=== PATIENT | male | born 1980 | race Caucasian/White ===

== ENCOUNTER 2021-10-12 16:55 | Inpatient (IN) | payer OTHER, SELFPAY ==
[2021-10-12 17:07] VITALS: BP 114/66; PULSE 80; RESP 16; TEMP 36.6; O2SAT 98; BMI 28.7
--- NOTE | 2021-10-12 17:17 | PCM.HP.STD ---
HPI - General General Date of Admission: 10/12/21 HPI Narrative LILLI CUNNINGHAM, is a 41 YO M who presents present to the acute inpt rehab unit at [facility] on 10/12/21 for physical debility due to a 15 foot fall from a roof. He sustained Multiple traumatic injuries including multiple rib fractures and a inferior pubic ramus fracture. He is having recurring visions and reliving the fall every time he closes his eyes. He was seen by the psychologist at the previous hospital. He reported that he has been having a depressed mood and anxiety that predated the fall. He is worried about his landlord's threat to evict him and his family. For the past 2 months he has not been sleeping well and he is also experiencing decreased appetite, impaired concentration and low energy. He has had passive suicidal ideation in the past month but, he has no plans, no intent and no active suicidal ideation. He has no hx of prior suicide attempts. He has been to counselling in the past after facing legal troubles but, he did not think it helped. He has never been on any psych meds or been admitted to a psych hospital. He is a cigarette smoker and he uses marijuana occasionally. He has been sober for 8 years. [facility] Medical History (Updated 10/15/21 @ 09:[address] Iqra Calvin DO) Asthma Left rotator cuff tear arthropathy Home Medications enoxaparin [Lovenox] 30 mg SUBCUT Q12H 10/12/21 [History Last Taken Unknown] gabapentin 200 mg PO TID 10/12/21 [History Last Taken Unknown] methocarbamol 1,500 mg PO TID 10/12/21 [History Last Taken Unknown] oxycodone 5 mg PO Q4H PRN 10/12/21 [History Last Taken Unknown] polyethylene glycol 3350 [Miralax] 17 g PO DAILY 10/12/21 [History Last Taken Unknown] Allergy/AdvReac Type Severity Reaction Status Date / Time Penicillins Allergy Rash Verified 01/01/16 12:16 vancomycin Allergy Rash Verified 01/01/16 12:16 Family History no significant family his Surgical History (Updated 10/12/21 @ 18:26 by Margarita Melissa) History of appendectomy S/P left knee arthroscopy Social History Smoking Status: Current every day smoker tobacco type: cigarettes Vital Signs Vital Signs Vital Signs: 10/12/21 17:07 Temperature 97.9 F Temperature Source Oral Pulse Rate 80 Respiratory Rate 16 Blood Pressure 114/66 Blood Pressure Mean 82 Blood Pressure Source Monitor Blood Pressure Position Semi-Fowlers Blood Pressure Location Right Arm Pulse Ox 98 Oxygen Delivery Method Room Air Results Lab / Micro Data Result Diagrams: 10/13/21 07:24 10/13/21 07:24 Assessment & Plan Assessment/Plan (1) Debility: (2) Ribs, multiple fractures: (3) Inferior pubic ramus fracture: (4) Fall: (5) Tobacco dependence: PLAN: The patient left AMA prior to me completing his H&P. He declined a RX for pain medication. Was upset over not being able to chew tobacco in his room and the need for him to call for assistance before getting out of bed. He was not mean about but, he thinks he will be better off at home. He was able to get in and out of bed at [facility] and ambulate to the . He ambulated 60 ft with PT with a WW with Wide RICKEY. Increased low back and R hip pain with ambulation. He was told to call if he changes his mind about a WW or pain medications. His picked him up from the hospital.
--- NOTE | 2021-10-12 17:31 | PCM.RU.PYE ---
Admission Information Primary Diagnosis:: Debility due to a 15 ft fall from a roof resulting in multiple traumatic injuries.
--- NOTE | 2021-10-12 18:00 | NURSING ---
Patient and aware of rehab routine, visiting hours, team meeting, and call bowen use/getting assist from staff for transfers. Patient tearful, eye contact minimal but very pleasant.
[2021-10-12 19:51] VITALS: BP 124/74; PULSE 84; RESP 18; TEMP 36.8; O2SAT 96
[2021-10-12] MEDS: Methocarbamol 750 MG Tablet 1500 MG PO (21:38)
[2021-10-12] MEDS: Gabapentin 100 MG Capsule 200 MG PO (21:38)
[2021-10-12] MEDS: Enoxaparin 30 MG/0.3 ML Syringe SC (21:38)
[2021-10-12] MEDS: traZODone 100 MG Tablet PO (21:40)
--- NOTE | 2021-10-12 21:46 | NURSING ---
A can for smokeless tobacco was found at patient's bedside. It was unopened. This RN informed patient that he was not able to use this while he is at [facility]. This RN offered to call the doctor to get a nicotine patch or gum ordered of he would like. Patient declined. The can of tobacco was locked up in medication drawer. Patient aware.
[2021-10-13] MEDS: oxyCODONE 5 MG Tablet PO ×2 (05:30→09:47)
[2021-10-13] MEDS: Methocarbamol 750 MG Tablet 1500 MG PO ×2 (05:30→12:47)
[2021-10-13] MEDS: Gabapentin 100 MG Capsule 200 MG PO ×2 (05:30→12:47)
[2021-10-13 07:49] LABS: Hematocrit 40.5 % (40-54); Hemoglobin 13.8 g/dL (13.0-16.5); Mean Corp Hgb Conc 34.1 g/dL (32-36); Mean Corpuscular Hgb 30.5 pg (27.0-32.0); Mean Corpuscular Volume 89.6 fL (80-94); Mean Platelet Vol. 8.7 fl (6.2-12.0); Platelet Count 500 K/mm3 (150-450); RBC Distribution Width CV 13.4 % (11.6-14.6); RBC Distribution Width SD 43.7 fl (35.1-43.9); Red Blood Count 4.52 M/mm3 (4.6-6.2); White Blood Count 7.8 K/mm3 (4.4-11.0)
[2021-10-13 08:09] LABS: ALB/GLOB Ratio 0.8 RATIO (0.9-2.4); AST(SGOT) 68 U/L (15-37); Alanine Aminotransfer ALT/SGPT 80 U/L (16-61); Albumin, Serum 3.1 g/dL (3.2-5.0); Alkaline Phosphatase 83 U/L (45-117); Anion Gap 4 (5-15); BUN 16 mg/dL (7-18); BUN/Creat Ratio 18.8 RATIO (10-20); Calcium,Total 8.9 mg/dL (8.5-10.1); Chloride 107 mmol/L (98-107); Creatinine, Serum 0.85 mg/dL (0.70-1.30); EST Glomerular Filtration Rate 105 mL/min (>60); Est Glom Filt Rate - Afr Amer 126 mL/min (>60); Glucose 100 mg/dL (74-106); Magnesium 2.3 mg/dL (1.6-2.6); Phosphorus 2.8 mg/dL (2.5-4.9); Potassium 4.3 mmol/L (3.5-5.1); Protein, Total 7.1 g/dL (6.4-8.2); Sodium Level 136 mmol/L (136-145)
[2021-10-13 09:28] VITALS: BP 118/70; PULSE 87; RESP 16; TEMP 37; O2SAT 95
[2021-10-13] MEDS: Lidocaine 5% Patch 1 PATCH TOPICAL (09:45)
[2021-10-13] MEDS: Polyethylene Glycol 3350 17 GM PACKET PO (09:45)
[2021-10-13] MEDS: Enoxaparin 30 MG/0.3 ML Syringe SC (09:47)
--- NOTE | 2021-10-13 14:00 | NURSING ---
Patient signed AMA form, discussed risks of leaving AMA. Flight Data Technician aware and Dr. Calvin. Patient has been tearful and wanting to go home. here at this time and patient left.
--- NOTE | 2021-10-18 18:46 | DS.PCM_ITS ---
Providers Date of Admission: 10/12/21 Date of Discharge: 10/13/21 (AMA) Primary Care Physician: Dr. Alfie Blackmon MD Reason For Visit: MULTI TRAUMA Diagnosis Discharge Diagnosis (1) Debility: Status: Acute Code(s): R53.81 - Other malaise (2) Ribs, multiple fractures: Status: Acute Code(s): S22.49XA - Multiple fractures of ribs, unspecified side, initial encounter for closed fracture (3) Inferior pubic ramus fracture: Status: Acute Code(s): S32.599A - Other specified fracture of unspecified pubis, initial encounter for closed fracture (4) Fall: Status: Acute Code(s): W19.XXXA - Unspecified fall, initial encounter (5) Tobacco dependence: Status: Acute Code(s): F17.200 - Nicotine dependence, unspecified, uncomplicated Medications at Discharge Home Medications enoxaparin [Lovenox] 30 mg SUBCUT Q12H 10/12/21 gabapentin 200 mg PO TID 10/12/21 methocarbamol 1,500 mg PO TID 10/12/21 oxycodone 5 mg PO Q4H PRN 10/12/21 polyethylene glycol 3350 [Miralax] 17 g PO DAILY 10/12/21 Hospital Course Operations None Procedures None Summary of Care Provided Minutes Spent on Discharge: 10 Hospital Course: Mr. Deleon was admitted to the inpt rehab unit at [facility] on 10/12/21 for debility due to injuries incurred when he fell off a roof. He was seen by PT and ambulated with a reciprocal pattern, decreased step length and height, wide base of stance, discontinuous steps with turns. He estimated his pain is 8 out of 10. He refused his second therapy session on 10/13. He was se en by Occupational Therapy and found to be independent with eating. He was contact-guard for grooming and needed minimal assistance with upper body dressing and lower body dressing. He was contact-guard assist for toileting. He left A on 10/13/21 when his showed up to visit and he did not receive any prescriptions. Weight / BMI Weight Weight: 199 lb 15.348 oz Body Mass Index (BMI) 28.7 ABG / Lab / Microbiology Data Result Diagrams: 10/13/21 07:24 10/13/21 07:24 Meaningful Use Info Meaningful Use Diagnoses (Choose all that apply): None applicable Discharge Plan Admission Admit Date/Time: 10/12/21 16:55 Attending Provider: Iqra Calvin Primary Care Provider: Alfie Blackmon Discharge Orders/Prescriptions Prescriptions: No Action polyethylene glycol 3350 [Miralax] 17 gram Powder In Packet 17 g PO DAILY RF: 0 methocarbamol 750 mg Tablet 1,500 mg PO TID RF: 0 oxycodone 5 mg Capsule 5 mg PO Q4H PRN (Reason: Pain) RF: 0 gabapentin 100 mg Capsule 200 mg PO TID RF: 0 enoxaparin [Lovenox] 30 mg/0.3 mL Syringe 30 mg SUBCUT Q12H RF: 0 Referrals / Follow Up: Alfie Blackmon MD [Primary Care Provider] - Disposition Disposition (needs filled in before D/C Order can be placed): Against Medical Advice Charges/Coding Visit Charges Inpatient E&M: [id number] Disch Hosp
== END 2021-10-13 14:00 | disposition left against medical advice (07) | DRG 561 ==
PROVIDERS: Admitting Provider Internal Medicine; PCP Family Medicine; Visit Provider Internal Medicine
DX: S22.49XD Multiple fractures of ribs, unspecified side, subsequent encounter for fracture with routine healing (principal); S32.599D Other specified fracture of unspecified pubis, subsequent encounter for fracture with routine healing; W13.2XXD Fall from, out of or through roof, subsequent encounter; F17.210 Nicotine dependence, cigarettes, uncomplicated
CPT/HCPCS: 36415; 80053; 83735; 84100; 85027; 97110; 97162; 97166; 97530; 97802